=== PATIENT | female | born 1980 | race Caucasian/White ===

== ENCOUNTER 2018-06-01 18:38 | Emergency (ER) | payer SELFPAY ==
[2018-06-01] MEDS ORDERED: IOPAMIDOL (ISOVUE 370) 100 ML BTL IV ONE (19:47)
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
[2018-06-01] MEDS ORDERED: HYDROCODONE/APAP 5/325 TAB PO ONE ×2 (21:24→21:59)
[2018-06-01] MEDS ORDERED: HYDROCOD/APAP 5/325 PREPACK#6 BTL TAKEHOME ONE ×2 (22:12→22:13)
[2018-06-01 22:17] VITALS: BP 132/82
== END 2018-06-01 22:17 | disposition home or self-care (01) ==
DX: S00.03XA Contusion of scalp, initial encounter (principal); S30.1XXA Contusion of abdominal wall, initial encounter; S10.11XA Abrasion of throat, initial encounter; S60.221A Contusion of right hand, initial encounter; Y04.2XXA Assault by strike against or bumped into by another person, initial encounter; Y92.019 Unspecified place in single-family (private) house as the place of occurrence of the external cause; Y99.8 Other external cause status
CPT/HCPCS: 82435-PO; 82565-PO; 82947-PO; 84132-PO; 84295-PO; 84520-PO; 85014-PO; Q9967